=== PATIENT | female | born 1950 | race African-American/Black ===

== ENCOUNTER → 2016-10-03 | Outpatient (CLI) | payer MEDICARE, OTHER ==
[2015-05-26 11:21] VITALS: BP 127/72
[~2016-10-03] MED LIST: FERR160T4 PO; VITA113. TP
--- NOTE | 2016-10-03 14:48 | RAD ---
DATE: 10/03/2016 EXAM: DIGITAL SCREEN BILAT W/CAD HISTORY: Routine screening COMPARISON: 04/27/2015 This study was interpreted with the benefit of Computerized Aided Detection (CAD). FINDINGS: There are scattered fibroglandular densities in the breasts. No new or enlarging breast densities are seen. Minimal benign calcification is present. No suspicious microcalcifications have developed. IMPRESSION: Stable mammograms without evidence of malignancy. BI-RADS CATEGORY: 2 BENIGN FINDING(S) RECOMMENDED FOLLOW-UP: 12M 12 MONTH FOLLOW-UP PQRS compliance statement: Patient information was entered into a reminder system with a target due date for the next mammogram. Mammography is a sensitive method for finding small breast cancers, but it does not detect them all and is not a substitute for careful clinical examination. A negative mammogram does not negate a clinically suspicious finding and should not result in delay in biopsying a clinically suspicious abnormality. "Our facility is accredited by the [employer] Mammography [employer]."
== END | disposition home or self-care (01) ==
LOC: MAMMO 10:43
PROVIDERS: ATTEND Family Medicine
DX: Z12.31 Encounter for screening mammogram for malignant neoplasm of breast (principal)
CPT/HCPCS: G0202; 77067

== ENCOUNTER → 2017-11-14 | Outpatient (CLI) | payer MEDICARE, OTHER | END | disposition home or self-care (01) | LOC: MAMMO 08:16 | DX: Z12.31 Encounter for screening mammogram for malignant neoplasm of breast (principal) | CPT/HCPCS: 77063; 77067 ==

== ENCOUNTER → 2018-12-21 | Outpatient (CLI) | payer MEDICARE, OTHER ==
[2015-05-26 11:21] VITALS: BP 127/72
--- NOTE | 2018-12-22 13:17 | RAD ---
DATE: 12/21/2018 EXAM: MAMMO OSCAR SCREENING BILATERAL HISTORY: Routine screening COMPARISON: 04/27/2015, 10/03/2016, 11/14/2017 mammographic exams This study was interpreted with the benefit of Computerized Aided Detection (CAD). Breast Density: SCATTERED The breast parenchyma shows scattered fibroglandular densities. Breast parenchyma level B. FINDINGS: No masses, calcifications, or distortion in the interval. IMPRESSION: Stable. BI-RADS CATEGORY: 1 NEGATIVE RECOMMENDED FOLLOW-UP: 12M 12 MONTH FOLLOW-UP PQRS compliance statement: Patient information was entered into a reminder system with a target due date in one year for the next mammogram. Mammography is a sensitive method for finding small breast cancers, but it does not detect them all and is not a substitute for careful clinical examination. A negative mammogram does not negate a clinically suspicious finding and should not result in delay in biopsying a clinically suspicious abnormality. "Our facility is accredited by the [employer] Mammography Program."
== END | disposition home or self-care (01) ==
LOC: MAMMO 08:23
PROVIDERS: ATTEND Family Medicine
DX: Z12.31 Encounter for screening mammogram for malignant neoplasm of breast (principal)
CPT/HCPCS: 77063; 77067

== ENCOUNTER → 2020-09-20 | Outpatient (CLI) | payer MEDICARE, OTHER ==
[2015-05-26 11:21] VITALS: BP 127/72
== END ==
LOC: LAB 10:03
PROVIDERS: ATTEND Internal Medicine Gastroenterology
DX: Z01.812 Encounter for preprocedural laboratory examination (principal); Z12.11 Encounter for screening for malignant neoplasm of colon; Z12.12 Encounter for screening for malignant neoplasm of rectum; Z20.822 Contact with and (suspected) exposure to COVID-19
CPT/HCPCS: U0003

== ENCOUNTER → 2020-10-03 | Outpatient (CLI) | payer MEDICARE, OTHER ==
[2015-05-26 11:21] VITALS: BP 127/72
[~2020-10-03] MED LIST changes: +CALC500T54 PO
== END ==
LOC: LAB 09:52
PROVIDERS: ATTEND Internal Medicine Gastroenterology
DX: Z01.812 Encounter for preprocedural laboratory examination (principal); Z12.11 Encounter for screening for malignant neoplasm of colon; Z12.12 Encounter for screening for malignant neoplasm of rectum; Z20.822 Contact with and (suspected) exposure to COVID-19
CPT/HCPCS: U0003

== ENCOUNTER → 2020-10-04 | Day surgery (SDC) | payer MEDICARE, OTHER ==
[~2020-10-04] MED LIST changes: +HYDROmorphone 2 MG/ML VIAL IVP PRN; +IV RINGERS,LACTATED 1000ML 1,000 ML IV SCH; +LIDOCAINE 2% PF 5 ML VIAL. ONE; +MORPHINE SULFATE 2 MG/ML VIAL. IVP PRN; +PROCHLORPERAZINE 10 MG/2 ML VIAL. IVP PRN; +PROPOFOL 10 MG/ML (20ML) VIAL. IV ONE; +fentaNYL PF VIAL 100 MCG/2 ML VIAL IVP PRN
--- NOTE | 2020-10-04 08:57 | CONS ---
DATE OF CONSULTATION: 10/04/2020 GASTROENTEROLOGY CONSULTATION REFERRING PHYSICIAN: Dr. Chopra. REASON FOR CONSULTATION: Colorectal screening. HISTORY OF PRESENT ILLNESS: This is a 70-year-old -[place] female with past medical history just significant for cholecystectomy and hernia surgery who is seen for interval colon exam. Last exam was done approximately 10 years ago, which was unrevealing for pathology. Bowel habits have been regular without diarrhea or constipation. There has been no melena and/or hematochezia and family history is positive for colon cancer with her mother in her mid 60s. PAST MEDICAL HISTORY: Status post cholecystectomy, hernia repair. ALLERGIES: ASPIRIN. MEDICATIONS: Include calcium carbonate 1 p.o. b.i.d. FAMILY AND SOCIAL HISTORY: She is a retired RN from [employer]: She is a nondrinker, nonsmoker. FAMILY HISTORY: Positive for colon cancer with her mother. REVIEW OF SYSTEMS: HEENT: There is no decreased hearing or visual acuity issues. CARDIAC: No history of hypertension, palpitations, syncope. PULMONARY: No shortness of breath, productive cough, or asthma. RENAL: No dysuria, frequency, hematuria. MUSCULOSKELETAL: No osteoarthrosis, arthralgias, myalgias. NEUROLOGIC: No stroke, migraine, neuropathy. PSYCHIATRIC: No mood swings, depression, insomnia. HEMATOLOGIC: No bleeding or bruising. GASTROINTESTINAL: See history of present illness. ENDOCRINE: No history of heat or cold intolerance, thyroid disease or diabetes. PHYSICAL EXAMINATION: GENERAL: Reveals a well-nourished, well-developed -[place]ong[place]ian female, alert, cooperative, in no acute distress. VITAL SIGNS: Temperature 97, pulse 76, respirations 18. LUNGS: Clear. CARDIOVASCULAR: Reveals an S1, S2 without S3, S4 or appreciable murmur. ABDOMEN: Reveals a soft abdomen, normal bowel sounds, without appreciable hepatosplenomegaly with an intact cholecystectomy incision. IMPRESSION: Colorectal screening with positive family history of colon cancer is warranted at this time. Risks and benefits have been discussed previously with the patient including risk of hemorrhage and perforation and she is willing to proceed. ROLANDO PITTS MD DR: VA/reena JOB#: [id number] / [id number] CATALINA Figueroa MD
[2020-10-04 09:25] VITALS: BP 132/79
== END | disposition home or self-care (01) ==
LOC: ENDOS 07:26
PROVIDERS: ATTEND Internal Medicine Gastroenterology
DX: Z12.11 Encounter for screening for malignant neoplasm of colon (principal); K64.0 First degree hemorrhoids; Z90.49 Acquired absence of other specified parts of digestive tract; Z98.890 Other specified postprocedural states; Z79.899 Other long term (current) drug therapy; Z80.0 Family history of malignant neoplasm of digestive organs; Z87.891 Personal history of nicotine dependence; Z88.8 Allergy status to other drugs, medicaments and biological substances
CPT/HCPCS: G0105; J2704; 45378

== ENCOUNTER → 2020-10-12 | Outpatient (CLI) | payer MEDICARE, OTHER ==
[2020-10-04 09:25] VITALS: BP 132/79
[~2020-10-12] MED LIST changes: -HYDROmorphone 2 MG/ML VIAL IVP PRN; -IV RINGERS,LACTATED 1000ML 1,000 ML IV SCH; -LIDOCAINE 2% PF 5 ML VIAL. ONE; -MORPHINE SULFATE 2 MG/ML VIAL. IVP PRN; -PROCHLORPERAZINE 10 MG/2 ML VIAL. IVP PRN; -PROPOFOL 10 MG/ML (20ML) VIAL. IV ONE; -fentaNYL PF VIAL 100 MCG/2 ML VIAL IVP PRN
--- NOTE | 2020-10-12 11:43 | CARD ---
MR#: [id number] Date of Study: 10/12/2020 Ordering Physician: EULA NELSON, Referring Physician: EULA NELSON, Tech: Jazlyn Taylor [facility] APPROVED REPORT EXAM: Two-dimensional and M-mode echocardiogram with Doppler and color Doppler. Other Information Quality : AverageHR: 76bpm Rhythm : PVC's INDICATION Arrhythmia 2D DIMENSIONS RVDd2.5 (2.9-3.5cm)Left Atrium(2D)3.2 (1.6-4.0cm) IVSd1.0 (0.7-1.1cm)Aortic Root(2D)2.5 (2.0-3.7cm) LVDd3.9 (3.9-5.9cm)LVOT Diameter1.7 (1.8-2.4cm) PWd0.9 (0.7-1.1cm)LVDs2.4 (2.5-4.0cm) FS (%) 39.2 %SV46.5 ml LVEF(%)70.3 (>50%) Aortic Valve AoV Peak Ebenezer.119.7cm/sAoV VTI24.5cm AO Peak GR.5.7mmHgLVOT Peak Ebenezer.97.6cm/s AO Mean GR.3mmHgAVA (VMAX)1.77cm2 Mitral Valve MV E Huvocsnm16.8cm/sMV DECEL TMMC207cg MV A Diekdlbu39.1cm/sE/A Ratio0.7 Pulmonary Valve PV Peak Xukxwtja070.6cm/s Pulmonary Vein S1 Zbunzvpd11.0cm/sD2 Helfwlvf45.0cm/s LEFT VENTRICLE The left ventricle is normal size. There is normal left ventricular wall thickness. The left ventricu lar systolic function is normal. The ejection fraction is estimated at 60%. There is normal LV segmen rachael wall motion. Transmitral Doppler flow pattern is Grade I-abnormal relaxation pattern. No left catherine tricle thrombus noted on this study. RIGHT VENTRICLE The right ventricle is normal size. There is normal right ventricular wall thickness. The right ventr icular systolic function is normal. ATRIA The left atrium size is normal. The right atrium size is normal. The interatrial septum is intact wit h no evidence for an atrial septal defect or patent foramen ovale as noted on 2-D or Doppler imaging. AORTIC VALVE The aortic valve is normal in structure and function. Doppler and Color Flow revealed no significant aortic regurgitation. There is no significant aortic valvular stenosis. MITRAL VALVE The mitral valve is normal in structure and function. There is no evidence of mitral valve prolapse. There is no mitral valve stenosis. Doppler and Color-flow revealed trace to mild mitral regurgitation . TRICUSPID VALVE The tricuspid valve is normal in structure and function. Doppler and Color Flow revealed no tricuspid valve regurgitation noted. Unable to calculate PAP. PULMONIC VALVE The pulmonary valve is normal in structure and function. Doppler and Color Flow revealed mild pulmoni c valvular regurgitation. GREAT VESSELS The aortic root is normal in size. The ascending aorta is normal in size. The IVC is normal in size a nd collapses >50% with inspiration. PERICARDIAL EFFUSION There is no evidence of significant pericardial effusion. Critical Notification Critical Value: No <Conclusion> The left ventricular systolic function is normal. The ejection fraction is estimated at 60%. There is normal LV segmental wall motion. Transmitral Doppler flow pattern is Grade I-abnormal relaxation pattern. Trace to mild mitral regurgitation. There is no evidence of significant pericardial effusion. Signed by : Dk Olmos, Electronically Approved : 10/12/2020 11:43:08
== END ==
LOC: ECHO 08:41
PROVIDERS: ATTEND Internal Medicine Cardiovascular Disease
DX: I08.8 Other rheumatic multiple valve diseases (principal)
CPT/HCPCS: 93306